=== PATIENT | male | born 1975 | race Two or more races ===

== ENCOUNTER 2016-06-25 18:33 | Emergency (ER) | payer OTHER ==
--- NOTE | ~2016-06-25 | EKG ---
PATIENT: JANICE ROBBINS UNIT #: [id number] Ventricular Rate: 91 BPM Atrial Rate: 91 BPM P-R Interval: 162 ms QRS Duration: 100 ms Q-T Interval: 338 ms QTC Calculation(Bezet): 415 ms P Herron: 20 degrees Calculated R Herron: -38 degrees Calculated T Herron: -18 degrees Diagnosis Line: Normal sinus rhythm Diagnosis Line: Left axis deviation Diagnosis Line: Poor R wave progression questionable lead position Diagnosis Line: or body habitus Diagnosis Line: Borderline ECG Diagnosis Line: When compared with ECG of 21-NOV-2012 12:23, Diagnosis Line: Questionable change in initial forces of Lateral Diagnosis Line: leads Diagnosis Line: Confirmed by KENNEDI CAMPOS MD ([id number]) on 07/03/2016 Diagnosis Line: 11:52:51 AM INTERPRETING MD: ANDRES ALEXANDRE
--- NOTE | ~2016-06-25 | CR63 ---
[facility], [place]. [facility] A Service of [facility] & [facility] RADIOLOGY TEXT RESULTS PATIENT: JANICE ROBBINS LOCATION: SED : 73 UNIT #: [id number] AGE: [address]: Patrick Barrera MD SEX: M ORDER DR: [id number] [place] [id number] E MR#: [id number] Acc #: [id number] NAME: JANICE ROBBINS : 1975 SEX: M STUDY DATE/TIME: 06/25/2016 18:55 UNIT: SED ROOM: STUDY DESCRIPTION: CR Chest 2 View Attending Physician: Patrick Barrera M.D. Ordering Physician: Rolf Streeter M.D. Primary Care Physician: No Primary Care Physician MEDICAL IMAGING REPORT This report is preliminary unless electronic signature is present. EXAM PA and lateral chest. INDICATIONS Shortness of breath, bilateral chest and lung pain for 3 days. FINDINGS Comparison made to a prior exam of November 21, 2012. The heart size is within normal limits. No pneumothorax or pleural effusion is seen. I do question if perhaps there is some patchy infiltrate adjacent to the right hilum. Short-term followup exam to document resolution is recommended. IMPRESSION A potential infiltrate is seen just superior to the right hilum. Short-term followup exam to document resolution is recommended. Dictated by... Mila Guaman M.D. THIS IS AN ELECTRONICALLY VERIFIED REPORT Mila Guaman M.D. at 06/26/2016 10:38 AM AFF/ea TD: 06/25/2016 20:02 JOB #: [id number] MEDICAL IMAGING REPORT Page 1 of 1
[~2016-06-25 18:33] MED LIST: ?BP MED; AMLODIPINE BESYL5 MG PO; AMOXICILLIN500 M1 PO; B/P PILL; GLUCOPHAGE500 MG PO; NORVASC PO
[2016-06-25 19:27] LABS: BASOPHIL# 0.1 X10e3 (0-0.3); BASOPHIL% 1.1 % (0-2.5); EOSINOPHIL# 0.1 X10e3 (0-0.7); EOSINOPHIL% 1.4 % (0.0-7.0); HEMATOCRIT 45.2 % (38.0-50.0); HEMOGLOBIN 15.3 gm/dL (13.0-16.0); LYMPHOCYTE# 2.3 X10e3 (1.0-3.5); LYMPHOCYTE% 23.4 % (17.0-45.0); MEAN CELL VOLUME 88.3 FL (83-96); MEAN CORPUSCULAR HEMOGLOBIN 29.9 PG (28-34); MEAN CORPUSCULAR HGB CONC 33.8 g/dL (30-36); MEAN PLATELET VOLUME 8.2 FL (6.5-11.5); MONOCYTE# 0.9 X10e3 (0-1.0); MONOCYTE% 8.8 % (3.0-12.0); NEUTROPHIL# 6.5 X10e3 (1.5-7.1); NEUTROPHIL% 65.3 % (40-75); PLATELET COUNT 271 X10e3 (140-420); RED BLOOD COUNT 5.12 X10e (3.90-5.60); RED CELL DISTRIBUTION WIDTH 13.1 % (11.0-15.5)
[2016-06-25 19:28] LABS: DIFF IND NO
[2016-06-25 19:38] LABS: ALBUMIN SERUM 4.3 g/dL (3.5-5.0); BILIRUBIN,TOTAL 0.3 mg/dL (0.2-2.0); CALCIUM SERUM 9.9 mg/dL (8.4-10.2); CREATININE SERUM 0.8 mg/dL (0.6-1.4); GLOM FILT RATE Estimated 110.2 mL/min (>60); POTASSIUM 3.7 mmol/L (3.5-5.1); PROTEIN TOTAL SERUM 7.5 g/dL (6.0-8.3)
[2016-06-25 19:38] LABS: POC - CKMB 1.3 ng/mL (0.0-7.9); POC - TROPONIN <0.05 ng/mL (<=0.05)
== END 2016-06-25 20:46 | disposition home or self-care (01) ==
LOC: SED 18:33
PROVIDERS: Emergency Medicine
DX: R06.02 Shortness of breath (principal); F17.210 Nicotine dependence, cigarettes, uncomplicated
CPT/HCPCS: 71020; 80053; 82553; 84484; 85025; 85379; 93005; 99284